=== PATIENT | male | born 1960 | race Caucasian/White ===

== ENCOUNTER → 2016-09-09 | Outpatient (CLI) | payer BC ==
[~2016-09-09] MED LIST: ASPI-435 PO; CLOP1TAB54 PO; INSDGI SQ; INSDGIPEN SC; LEVO125T4 PO; LISI-725 PO; LPR25 PO; LPT/40 PO; NRV/5 PO; NVLGI SC; ZLF/100 PO
[2016-09-09 16:26] LABS: URINE PROTIEN/CREAT RATIO 0.2 (0-0.2); URINE TOTAL PROTEIN 28.8 mg/dl (0-11.9)
[2016-09-09 16:28] LABS: BLOOD UREA NITROGEN 15 mg/dl (7-18); CALCIUM 9.2 mg/dl (8.5-10.1); CARBON DIOXIDE 27 mmol/L (21-32); CHLORIDE 105 mmol/L (98-107); CREATININE 0.85 mg/dl (0.60-1.40); GLUCOSE 64 mg/dl (70-99); POTASSIUM 3.8 mmol/L (3.5-5.1); SODIUM 140 mmol/L (136-145)
[2016-09-09 16:39] LABS: CHOLESTEROL 137 mg/dl (0-200); CHOLESTEROL/HDL RATIO 3.1; HDL CHOLESTEROL 44 mg/dl; LDL CHOLESTEROL CALCULATED 74 mg/dl; TRIGLYCERIDES 93 mg/dl (0-150); VERY LOW DENSITY LIPOPROT CALC 19 mg/dl
[2016-09-10 06:08] LABS: ESTIMATED AVERAGE GLUCOSE 220 mg/dl; HA1C FLAG Normal (Normal)
== END | disposition home or self-care (01) ==
LOC: C.LAB1850 15:21
PROVIDERS: ATTEND Internal Medicine Geriatric Medicine
DX: E78.5 Hyperlipidemia, unspecified (principal); E10.9 Type 1 diabetes mellitus without complications; I25.10 Atherosclerotic heart disease of native coronary artery without angina pectoris; E03.9 Hypothyroidism, unspecified; I10 Essential (primary) hypertension

== ENCOUNTER 2016-10-29 12:27 | Emergency (ER) | payer BC, OTHER ==
[~2016-10-29] VITALS: Ht 172.7 cm; Wt 77.7 kg
[~2016-10-29 12:27] MED LIST changes: -INSDGI SQ; -NRV/5 PO; -ZLF/100 PO
[2016-10-29 12:31] VITALS: Ht 172.7 cm; Wt 77.7 kg
[2016-10-29] MEDS ORDERED: INSDGI SQ (14:04)
[2016-10-29] MEDS ORDERED: NRV/5 PO (14:04)
[2016-10-29] MEDS ORDERED: LPR25 PO (14:04)
[2016-10-29] MEDS ORDERED: ZLF/100 PO (14:04)
[2016-10-29 14:21] VITALS: O2SAT 96
[2016-10-29 14:28] LABS: BASO % 0.1 %; EOS % 0.4 %; HEMATOCRIT 43.8 % (42-52); IG% 0.1 %; LYMPH % 21.4 %; MEAN CELL VOLUME 84.7 fL (80-100); MEAN CORPUSCULAR HEMOGLOBIN 30.9 pg (25-34); MEAN CORPUSCULAR HGB CONC 36.5 g/dl (32-36); MEAN PLATELET VOLUME 8.8 fL (7.4-10.4); MONO % 7.5 %; NEUT % 70.5 %; PLATELET COUNT 301 K/uL (130-400); RED BLOOD COUNT 5.17 M/uL (4.7-6.1); WHITE BLOOD COUNT 7.42 K/uL (4.8-10.8)
[2016-10-29 14:29] LABS: BASO ABS # 0.01 K/uL (0-0.2); COMPLETE YES; LYMPH ABS # 1.59 K/uL (1.2-3.4)
[2016-10-29 14:34] LABS: PROTHROMBIN TIME (PATIENT) 10.9 SECONDS (9.0-12.0)
[2016-10-29 14:36] LABS: ALT/SGPT 37 U/L (12-78); BLOOD UREA NITROGEN 18 mg/dl (7-18); BUN/CREATININE RATIO 14.9 (10-20); CALCIUM 9.7 mg/dl (8.5-10.1); CARBON DIOXIDE 18 mmol/L (21-32); CHLORIDE 100 mmol/L (98-107); GLUCOSE 219 mg/dl (70-99); POTASSIUM 3.7 mmol/L (3.5-5.1); SODIUM 134 mmol/L (136-145)
[2016-10-29] MEDS ORDERED: SODIUM CHLORIDE 0.9% 1000ML 1,000 ML IV STA ×2 (14:46)
[2016-10-29 14:47] LABS: ALKALINE PHOSPHATASE 75 U/L (45-117); AST/SGOT 31 U/L (15-37)
[2016-10-29 15:10] LABS: BETA-HYDROXYBUTYRATE 10.01 mg/dL (0.2-2.81)
[2016-10-29 15:17] LABS: URINE APPEARANCE CLEAR (CLEAR); URINE COLOR DK YELLOW; URINE NITRITE POS (NEG); URINE PH 5.5 (4.5-7.5); URINE SPECIFIC GRAVITY 1.042 (1.000-1.030); UROBILINOGEN NEG (NEG)
[2016-10-29 15:20] LABS: MANUAL MICROSCOPIC REQUIRED? NO; REVIEW REQ? NO
[2016-10-29 15:22] LABS: URINE BILIRUBIN NEG (NEG)
[2016-10-29 17:17] LABS: BUN/CREATININE RATIO 16.7 (10-20); CALCIUM 8.3 mg/dl (8.5-10.1); CREATININE 0.96 mg/dl (0.60-1.40); POTASSIUM 3.3 mmol/L (3.5-5.1)
[2016-10-29 19:00] VITALS: BP 129/86; PULSE 78; TEMP 36.4; O2SAT 100
--- NOTE | 2016-10-29 21:49 | EMERGENCY ROOM VISIT NOTE ---
History Report prepared by Xiomara: Karin Westfall Under the Supervision of: Dr. Dyllan Dickerson M.D. First contact with patient: 14:17 Chief Complaint: HYPERGLYCEMIA Stated Complaint: WEAK AND LOW SUGAR YESTERDAY, SUGAR HIGH TODAY Nursing Triage Summary: pt reports he is insulin dependent dibetic and yesterday when he went home started shaking and knew bsg was low to weak to move to answer phone or get food in mouth. pt reports checking sugars 4-5 times a day. ate 2 coookies yesterday and then fell asleep. pt is hyper in triage and reports he is scared. feels weak and shakey now History of Present Illness The patient is a 55 year old male who presents to the Emergency Room with complaints of intermittent hypoglycemia that has been ongoing for the past several weeks. The patient states that yesterday around 1400 he laid down to take a nap. He states that he noticed his blood glucose level was dropping so he tried eating cookies and icing to raise his levels. The patient states that he was so weak during these episodes that it is hard for him to even move because he feels so weak. He states that after the episode he fell asleep for the rest of the day until this morning. The patient states that when he woke up with chills and blood glucose around 190 mg/dL. The patient's states that these hypoglycemic episodes have been happening three times a week. She states that the patient does not eat normally throughout the day. His usual diet is potato chips. The patient states that he takes 45 units of Lantus each morning. The patient additionally notes tachycardia and difficulty breathing. Pt denies LOC, headache, fevers, diaphoresis, visual changes, neck pain, chest pain, nausea, vomiting, abdominal pain, back pain, melena, hematochezia, urinary symptoms, numbness, lymphadenopathy, rash, or other complaints. Source of History: patient, spouse/significant other () Onset: past several weeks Position: other (global) Quality: other (hypoglycemia) Timing: intermittent Associated Symptoms: + chills, + weakness Review of Systems See HPI for pertinent positives and negatives. A total of ten systems were reviewed and were otherwise negative. Past Medical & Surgical Medical Problems: (1) Diabetes mellitus (2) High cholesterol (3) HTN (hypertension) Family History Heart disease Social History Smoking Status: Never Smoker Alcohol Use: heavy Marital Status: Housing Status: lives with significant other Occupation Status: employed Current/Historical Medications Scheduled Amlodipine Besylate (Amlodipine Besylate), 5 MG PO DAILY Aspirin (Aspirin 81), 81 MG PO DAILY Atorvastatin (Lipitor), 40 MG PO DAILY Clopidogrel Bisulfate (Plavix), 75 MG PO DAILY Insulin Aspart (Novolog), 30-50 UNITS SC DAILY Insulin Glargine (Lantus), 45 UNITS SQ QAM Levothyroxine Sodium (Levothyroxine Sodium), 1 TAB PO DAILY Lisinopril (Zestril), 40 MG PO DAILY Metoprolol Tartrate (Lopressor), 1.5 TAB PO BID Sertraline HCl (Sertraline HCl), 100 MG PO DAILY Allergies Coded Allergies: No Known Allergies (Unverified , 10/29/16) Physical Exam Vital Signs Date Time Temp Pulse Resp B/P Pulse Ox O2 Delivery O2 Flow Rate FiO2 10/29/16 19:00 36.4 78 18 129/86 100 10/29/16 18:29 66 10/29/16 16:51 77 18 141/87 Room Air 10/29/16 14:57 71 18 110/76 97 10/29/16 14:28 72 10/29/16 14:21 96 Room Air 10/29/16 12:31 36.4 91 22 157/105 98 Room Air Physical Exam GENERAL: Awake, alert, well-appearing, in no distress HENT: Normocephalic, atraumatic. Oropharynx unremarkable. EYES: Normal conjunctiva. Sclera non-icteric. NECK: Supple. No nuchal rigidity. FROM. No JVD. RESPIRATORY: Clear to auscultation. CARDIAC: Regular rate, normal rhythm. Extremities warm and well perfused. Pulses equal. ABDOMEN: Soft, non-distended. No tenderness to palpation. No rebound or guarding. No masses. RECTAL: Deferred. MUSCULOSKELETAL: Chest examination reveals no tenderness. The back is symmetrical on inspection without obvious abnormality. There is no CVA tenderness to palpation. No joint edema. LOWER EXTREMITIES: Calves are equal size bilaterally and non-tender. No edema. No discoloration. NEURO: Normal sensorium. No sensory or motor deficits noted. SKIN: No rash or jaundice noted. Medical Decision & Procedures Laboratory Results 10/29/16 13:11 Red Blood Count 5.17, Mean Corpuscular Volume 84.7, Mean Corpuscular Hemoglobin 30.9, Mean Corpuscular Hemoglobin Concent 36.5, Mean Platelet Volume 8.8, Neutrophils (%) (Auto) 70.5, Lymphocytes (%) (Auto) 21.4, Monocytes (%) (Auto) 7.5, Eosinophils (%) (Auto) 0.4, Basophils (%) (Auto) 0.1, Neutrophils # (Auto) 5.22, Lymphocytes # (Auto) 1.59, Monocytes # (Auto) 0.56, Eosinophils # (Auto) 0.03, Basophils # (Auto) 0.01 10/29/16 16:45 Test 10/29/16 13:11 10/29/16 14:57 10/29/16 16:45 10/29/16 18:43 White Blood Count 7.42 K/uL (4.8-10.8) Red Blood Count 5.17 M/uL (4.7-6.1) Hemoglobin 16.0 g/dL (14.0-18.0) Hematocrit 43.8 % (42-52) Mean Corpuscular Volume 84.7 fL (80-100) Mean Corpuscular Hemoglobin 30.9 pg (25-34) Mean Corpuscular Hemoglobin Concent 36.5 g/dl (32-36) Platelet Count 301 K/uL (130-400) Mean Platelet Volume 8.8 fL (7.4-10.4) Neutrophils (%) (Auto) 70.5 % Lymphocytes (%) (Auto) 21.4 % Monocytes (%) (Auto) 7.5 % Eosinophils (%) (Auto) 0.4 % Basophils (%) (Auto) 0.1 % Neutrophils # (Auto) 5.22 K/uL (1.4-6.5) Lymphocytes # (Auto) 1.59 K/uL (1.2-3.4) Monocytes # (Auto) 0.56 K/uL (0.11-0.59) Eosinophils # (Auto) 0.03 K/uL (0-0.5) Basophils # (Auto) 0.01 K/uL (0-0.2) RDW Standard Deviation 39.6 fL (36.4-46.3) RDW Coefficient of Variation 12.8 % (11.5-14.5) Immature Granulocyte % (Auto) 0.1 % Immature Granulocyte # (Auto) 0.01 K/uL (0.00-0.02) Prothrombin Time 10.9 SECONDS (9.0-12.0) Prothromb Time International Ratio 1.0 (0.9-1.1) Activated Partial Thromboplast Time 27.2 SECONDS (21.0-31.0) Partial Thromboplastin Ratio 1.0 Magnesium Level 2.0 mg/dl (1.8-2.4) Total Bilirubin 0.6 mg/dl (0.2-1) Direct Bilirubin 0.1 mg/dl (0-0.2) Aspartate Amino Transf (AST/SGOT) 31 U/L (15-37) Alanine Aminotransferase (ALT/SGPT) 37 U/L (12-78) Alkaline Phosphatase 75 U/L (45-117) Troponin I < 0.015 ng/ml (0-0.045) Total Protein 8.5 gm/dl (6.4-8.2) Albumin 4.5 gm/dl (3.4-5.0) Lipase 139 U/L (73-393) Beta-Hydroxybutyric Acid 10.01 mg/dL (0.2-2.81) Thyroid Stimulating Hormone (TSH) 13.100 uIu/ml (0.300-4.500) Urine Color DK YELLOW Urine Appearance CLEAR (CLEAR) Urine pH 5.5 (4.5-7.5) Urine Specific [place] 1.042 (1.000-1.030) Urine Protein TRACE (NEG) Urine Glucose (UA) 3+ (NEG) Urine Ketones 2+ (NEG) Urine Occult Blood NEG (NEG) Urine Nitrite POS (NEG) Urine Bilirubin NEG (NEG) Urine Urobilinogen NEG (NEG) Urine Leukocyte Esterase TRACE (NEG) Urine WBC (Auto) 1-5 /hpf (0-5) Urine RBC (Auto) 0-4 /hpf (0-4) Urine Hyaline Casts (Auto) 10-30 /lpf (0-5) Urine Epithelial Cells (Auto) 10-20 /lpf (0-5) Urine Bacteria (Auto) NEG (NEG) Anion Gap 9.0 mmol/L (3-11) Est Creatinine Clear Calc Drug Dose 83.1 ml/min Estimated GFR () 102.0 Estimated GFR (Non- 88.0 BUN/Creatinine Ratio 16.7 (10-20) Calcium Level 8.3 mg/dl (8.5-10.1) Bedside Glucose 130 mg/dl (70-99) Laboratory results reviewed by me Medications Administered Medications (Trade) Dose Ordered Sig/Debbie Route Start Time Stop Time Status Last Admin Dose Admin Sodium Chloride (Nss 1000ml) 1,000 ml @ 200 mls/hr Q5H STAT IV 10/29/16 14:46 10/29/16 19:45 DC 10/29/16 14:46 200 MLS/HR ECG Indication: weakness, other (hypoglycemia) Rate (beats per minute): 59 Rhythm: sinus bradycardia Findings: nonspecific-ST abn, Q waves (Lateral), no ectopy Comparison ECG Date: 05/30/16 Change: no significant change ED Course 1439: The patient was evaluated in room C4. A complete history and physical exam was performed. 1446: Ordered Sodium Chloride 1000 ml @ 999 mls/hr IV, Sodium Chloride 1000 ml @ 200 mls/hr IV. 1555: I reevaluated the patient and he is resting comfortably. 1615: I discussed the patients case with Dr. Wilkinson, Endocrinology. He states that the patient has had a lot of problems with depression, stressors at work, and alcohol issues. He states that he will happily see the patient in the office this week for follow up. 1625: I reevaluated the patient and he is resting comfortably. He states that he feels less stress and has cut back on his alcohol consumption. He is going to eat some food in the department and see his repeat chemistries. 1730: I reevaluated the patient and he feels well while eating his dinner. 1851: I reevaluated the patient and he is resting comfortably. I discussed the treatment plan with him and he verbalized complete understanding and agreement. He is ready to go home. Medical Decision Triage Nursing notes reviewed. The patient's presentation and history were concerning for blood sugar abnormalities. Etiologies such as metabolic, infection, hypo/hyperglycemia, DKA, ketosis, electrolyte abnormalities, cardiac sources, intracerebral event, toxicologic, neurologic, as well as others were entertained. The patient was evaluated. Clinically he looked well. The patient had readily admitted that his diet is suboptimal. He rarely eats. His insulin dosing is not consistent. The patient did eventually note that he tries to minimize his amount of insulin taken because of cost. The patient also noted that he had some alcohol recently but has cut back dramatically. Blood work was obtained. The patient was hydrated. His CBC was unremarkable. His chemistry panel revealed a mild elevation of his anion gap and glucose into the low 200 range. He has slight elevation of liver function and his beta hydroxybutyric acid level. The patient's blood sugar was rechecked as there was some concerns about developing DKA and the blood sugar was near normal. Likely the patient looked well. His Troponin was rechecked and his anion gap and hyperglycemia was resolved. No acidosis present. This initial abnormality may be due to ketosis as the patient has really been taking significant calories in the last few days. I did consult with his dx board operator. The patient has long- standing issues with alcohol use and depression. He has issues with diabetic control and diet. The patient confirm this. He is not suicidal. He notes his memory issues have actually improved slightly. I had a long discussion with him about the patient. He will see the patient in the office this week for endocrinology consultation and further diabetic education. The patient and felt comfortable with this plan. I encouraged the patient to follow all instructions and diabetic recommendations given to him by endocrinology. I did provide the patient with handouts on diet, insulin, and diabetic care. The patient was given dinner. He did well with this. His blood glucose was minimally elevated over normal. The patient did not want any insulin for this and will monitor her sugar and treat himself as previously outlined. If he worsens in any way she will come back to the emergency department. By the evaluation outlined above other emergent etiologies such as those listed in the differential, as well as others, were deemed relatively unlikely. The patient went for informed about the findings as listed above. All questions were answered and they were pleased with the treatment. Return instructions were outlined and the patient was discharged in stable condition. The patient was referred to endocrinology for follow-up this week for a recheck of the current condition. The chart was completed utilizing [employer] voice recognition software. Grammatical errors, random word insertions, pronoun errors, and incomplete sentences are an occasional consequence of this system due to software limitations, ambient noise, and hardware issues. Any formal questions or concerns about the content, text, or information contained within the body of this dictation should be directly addressed to the physician for clarification. Consults Time Called: 1605 Consulting Physician: Dr. Wilkinson, Endocrinology Returned Call: 1615 I discussed the patients case with Dr. Wilkinson, Endocrinology. He states that the patient has had a lot of problems with depression, stressors at work, and alcohol issues. He states that he will happily see the patient in the office this week for follow up. Impression Primary Impression: Hyperglycemia Additional Impression: Diabetes Scribe Attestation The scribe's documentation has been prepared under my direction and personally reviewed by me in its entirety. I confirm that the note above accurately reflects all work, treatment, procedures, and medical decision making performed by me. Departure Information Dispostion Home / Self-Care Referrals Dipesh Craig M.D. (PCP) Forms HOME CARE DOCUMENTATION FORM, IMPORTANT VISIT INFORMATION, WORK / SCHOOL INSTRUCTIONS Patient Instructions Diabetes Carbs, Diabetes Eating Out, Diabetes Healthy Meals, Diabetes Living Life, Diabetes Shopping Preparing Meals, ED Diabetes Hypoglycemia Insulin React , ED Diet Diabetic, [facility] Additional Instructions Continue current medications. Follow-up with your dx board operator office tomorrow. But the company secretary know that he was aware about your Emergency Room visit and will see this week in consultation. Rest and drink plenty of fluids. Eat a healthy diet as outlined. See the reference material. Return to the ER for worsening blood sugar problems, chest pain, difficulty breathing, fevers, vomiting, worsening of your condition, or as needed. Problem Qualifiers
== END 2016-10-29 19:01 | disposition home or self-care (01) ==
LOC: C.EDB 12:28 → C.EDC 19:01
DX: E11.65 Type 2 diabetes mellitus with hyperglycemia (principal); I10 Essential (primary) hypertension; Z82.49 Family history of ischemic heart disease and other diseases of the circulatory system

== ENCOUNTER → 2017-07-08 | Outpatient (CLI) | payer BC ==
[~2017-07-08] MED LIST changes: +INSDGI SQ; -INSDGIPEN SC; -LEVO125T4 PO; +LEVO125T5 PO; +NRV/5 PO; +ZLF/100 PO
== END | disposition home or self-care (01) ==
LOC: C.LABSPEC 17:20
PROVIDERS: ATTEND Nurse Practitioner Adult Health
DX: S41.101A Unspecified open wound of right upper arm, initial encounter (principal); X58.XXXA Exposure to other specified factors, initial encounter

== ENCOUNTER → 2017-07-18 | Outpatient (CLI) | payer BC ==
[2017-07-18 14:02] LABS: BLOOD UREA NITROGEN 29 mg/dl (7-18); BUN/CREATININE RATIO 22.3 (10-20); CALCIUM 9.7 mg/dl (8.5-10.1); CARBON DIOXIDE 26 mmol/L (21-32); CHLORIDE 96 mmol/L (98-107); CREATININE 1.29 mg/dl (0.60-1.40); GLUCOSE 312 mg/dl (70-99); POTASSIUM 5.4 mmol/L (3.5-5.1); SODIUM 130 mmol/L (136-145)
[2017-07-18 14:12] LABS: BETA-HYDROXYBUTYRATE 1.84 mg/dL (0.2-2.81)
== END | disposition home or self-care (01) ==
LOC: C.LABBC 09:22
PROVIDERS: ATTEND Nurse Practitioner Adult Health
DX: E10.9 Type 1 diabetes mellitus without complications (principal)

== ENCOUNTER → 2017-07-21 | Outpatient (CLI) | payer BC ==
[2017-07-21 16:46] LABS: BLOOD UREA NITROGEN 27 mg/dl (7-18); BUN/CREATININE RATIO 20.1 (10-20); CALCIUM 8.9 mg/dl (8.5-10.1); CARBON DIOXIDE 22 mmol/L (21-32); CHLORIDE 101 mmol/L (98-107); CREATININE 1.36 mg/dl (0.60-1.40); GLUCOSE 199 mg/dl (70-99); POTASSIUM 4.6 mmol/L (3.5-5.1); SODIUM 133 mmol/L (136-145)
[2017-07-22 06:07] LABS: ESTIMATED AVERAGE GLUCOSE 258 mg/dl; HA1C FLAG Normal (Normal)
== END | disposition home or self-care (01) ==
LOC: C.LAB1850 14:18
PROVIDERS: ATTEND Internal Medicine Geriatric Medicine
DX: Z00.00 Encounter for general adult medical examination without abnormal findings (principal); I10 Essential (primary) hypertension; E03.9 Hypothyroidism, unspecified; E10.9 Type 1 diabetes mellitus without complications; Z11.59 Encounter for screening for other viral diseases; L08.9 Local infection of the skin and subcutaneous tissue, unspecified

== ENCOUNTER → 2017-07-23 | Outpatient (CLI) | payer BC ==
[2017-07-23 17:25] LABS: BLOOD UREA NITROGEN 20 mg/dl (7-18); CALCIUM 8.7 mg/dl (8.5-10.1); CARBON DIOXIDE 25 mmol/L (21-32); CHLORIDE 103 mmol/L (98-107); GLUCOSE 290 mg/dl (70-99); POTASSIUM 4.6 mmol/L (3.5-5.1); SODIUM 132 mmol/L (136-145)
== END | disposition home or self-care (01) ==
LOC: C.LABBC 14:19
PROVIDERS: ATTEND Nurse Practitioner Adult Health
DX: L08.9 Local infection of the skin and subcutaneous tissue, unspecified (principal)

== ENCOUNTER → 2017-10-16 | Outpatient (CLI) | payer OTHER ==
[2017-10-16 14:11] LABS: HEMOGLOBIN A1C 10.8 % (4.5-5.6)
[2017-10-16 14:30] LABS: ALBUMIN 4.3 gm/dl (3.4-5.0); ALKALINE PHOSPHATASE 88 U/L (45-117); ALT/SGPT 29 U/L (12-78); AST/SGOT 17 U/L (15-37); BLOOD UREA NITROGEN 17 mg/dl (7-18); CALCIUM 9.9 mg/dl (8.5-10.1); CARBON DIOXIDE 27 mmol/L (21-32); CHOLESTEROL 214 mg/dl (0-200); CREATININE 1.08 mg/dl (0.60-1.40); GLUCOSE 381 mg/dl (70-99); LDL CHOLESTEROL CALCULATED 143 mg/dl; POTASSIUM 4.3 mmol/L (3.5-5.1); SODIUM 133 mmol/L (136-145); TOTAL PROTEIN 8.4 gm/dl (6.4-8.2)
== END | disposition home or self-care (01) ==
LOC: C.LABBC 09:45
PROVIDERS: ATTEND Internal Medicine Geriatric Medicine
DX: E78.5 Hyperlipidemia, unspecified (principal); I10 Essential (primary) hypertension; I25.10 Atherosclerotic heart disease of native coronary artery without angina pectoris; E03.9 Hypothyroidism, unspecified; E10.9 Type 1 diabetes mellitus without complications; F41.8 Other specified anxiety disorders

== ENCOUNTER 2023-03-24 13:45 | Inpatient (IN) ==
--- NOTE | 2023-03-24 15:02 | Emergency Department Note ---
History of Present Illness General Chief complaint: Cardiac Assessment Time Seen by Provider: 03/24/23 14:42 History of Present Illness This is a 62-year-old male with a history of diabetes, hypertension, dyslipid emia, history of cardiac stent placement in 2014 that presents to the emergency department via EMS from PCP office for evaluation of "chest pain". The patient notes that he has been under a tremendous amount of stress that acutely worsened earlier today. He notes that he found out that he may lose his house this morning. He notes that this increased stress then translated into some chest burning in the upper chest. He also happened to have a PCP follow-up today scheduled before and was there today at 1 PM. He notes that in discussion he became worked up and began having what he describes as a panic attack with associated chest burning. Nitroglycerin was taken and also an aspirin. He n otes that at the present time chest burning/pain has resolved. Per review of the patient's previous medical record it does appear that the patient on 12/09/2014 underwent cardiac cath followed by stent placement x1. He does not follow with cardiology presently. Patient does note that the symptoms he is experiencing today feel similar to what led to a cardiac cath previously. Home Medications Medication Instructions Recorded Confirmed Type aspirin 81 mg tablet,delayed 81 mg PO QAM 08/06/18 03/24/23 History release (Justice Low Dose Aspirin) blood-glucose meter (Accu-Chek #1 ea 04/12/19 01/02/23 History Guide Glucose Meter) blood-glucose meter,continuous #1 ea 01/16/22 01/02/23 Rx (Dexcom G6 [facility] [employer]) thiamine HCl (vitamin B1) 100 mg 100 mg PO DAILY #90 tabs 03/08/22 03/24/23 Rx tablet mirtazapine 7.5 mg tablet 7.5 mg PO DAILY PRN Sleep 04/22/22 03/24/23 History blood sugar diagnostic (Accu-Chek #50 ea 05/07/22 01/02/23 Rx Guide test strips) blood-glucose sensor (Dexcom G6 #9 ea 10/30/22 03/24/23 Rx Sensor device) blood-glucose transmitter (Dexcom #1 ea 10/30/22 03/24/23 Rx G6 Transmitter device) pen needle, diabetic 32 gauge x #150 ea 10/30/22 03/24/23 Rx 532" (BD Vashti 2nd Gen Pen Needle) insulin aspart U-100 100 unit/mL 8 unit (0.08 mL) subcut TID #1 box 01/02/23 03/24/23 Rx (3 mL) subcutaneous pen (Novolog FlexPen U-100 Insulin aspart) lancets (Accu-Chek Fastclix Lancet #50 ea 01/02/23 01/02/23 History Drum) insulin degludec 100 unit/mL (3 32 unit (0.32 mL) subcut QPM #15 mL 01/06/23 03/24/23 Rx mL) subcutaneous pen (Tresiba FlexTouch U-100 insulin) lisinopril 40 mg tablet 40 mg PO QAM #90 tabs 01/16/23 03/24/23 Rx atorvastatin 40 mg tablet 40 mg PO HS #90 tabs 01/23/23 03/24/23 Rx nitroglycerin 0.4 mg sublingual 0.4 mg sublingual UD PRN Angina 01/23/23 03/24/23 Rx tablet #25 tabs amlodipine 10 mg tablet 10 mg PO QAM #30 tabs 02/06/23 03/24/23 Rx levothyroxine 112 mcg tablet 112 mcg PO QAM #90 tabs 02/14/23 03/24/23 Rx Allergies Allergy/AdvReac Type Severity Reaction Status Date / Time buspirone [From BuSpar] Allergy Intermediate "put me to Verified 03/24/23 16:16 sleep driving", made very drowsy Past Med/Surg History Medical History Alcohol abuse 3 beers per day Anxiety Depression Diabetes mellitus type 1 History of anesthesia reaction "during disce[place] [facility] [place] an [place] attack--had to have a breathing tx" History of COVID-19 Aug 2020 > tested at [facility], had no symptoms > was due to exposure Hyperlipidemia Hypertension Hypothyroidism MDD (major depressive disorder) Myocardial Infarction 2014--follows with Dr. Sullivan Osteoarthritis Surgical History History of appendectomy History of colonoscopy History of discectomy L4-L5 History of heart artery stent 2014 @ [facility] History of tonsillectomy History of wisdom tooth extraction Family History Father Family history of diabetes mellitus Family hx colonic polyps Mother Family history of diabetes mellitus Cardiac disorder Myocardial infarction Sister Family history of diabetes mellitus Grandfather (Maternal) Family history of diabetes mellitus Grandfather (Paternal) Family history of diabetes mellitus Grandmother (Paternal) Family history of diabetes mellitus Grandmother (Maternal) Family history of diabetes mellitus Brother Family history of diabetes mellitus Other No family history of adverse response to anesthesia Denies family history of Ovarian cancer Prostate cancer Breast cancer Colorectal cancer Social History Smoking Status: Never smoker Tobacco Type: Cigarettes Age Quit Using Tobacco: 17; Cigarettes Per Day: social; Second Hand Exposure: Yes (Patient states "not much"); Do You Dip or Chew Tobacco: Yes; Tobacco Cessation Education Requested by Patient: No Hx Alcohol Use: Yes Alcohol type: beer Alcohol Intake Frequency Comment: 1-2 couple days a week Hx Substance Use: Yes Prescribed Medications: Marijuana Last Used Substance: Hours (ago) Last Used Substance Other:: 09/02/2018 Substance Use Type Other:: daily use, no card, advised 3 day hold Preferred Language: Yi Communication Ability: Effective Visual Impairment: No Limitations Hearing Ability: Normal Configuration Specialist Required: No Beliefs That Will Affect Care: None marital status: Current Living Situation: Spouse Current Living Situation Comment: home current occupational status: retired How many Children do You have: 3 Other Information That Helps Us Care for You: No Feels Safe at Home: Yes Safety Concerns: Feels Safe At This Time Childhood Exposure to Second-Hand Smoke: Yes caffeine: Yes (coffee ) Dental Care, Regularly: No Physical Activity Frequency: Does not Exercise Seatbelt Use: always Sunscreen Use: No Assistive Devices: None Review of Systems A total of 10 systems reviewed and were otherwise negative Physical Exam Vital Signs Vital Signs - 24 hr 03/24/23 14:02 03/24/23 14:06 03/24/23 14:25 Temperature 36.7 C Temperature Source Oral Pulse Rate 99 H 101 H Pulse Rate [Apical] Respiratory Rate 20 Respiratory Effort / Characteristics Non-Labored Spontaneous Respiratory Pattern Regular Blood Pressure 163/83 H Blood Pressure [Left Arm] Blood Pressure Mean 109 Blood Pressure Mean [Left Arm] Blood Pressure Position Semi-fowlers Blood Pressure Position [Left Arm] Pulse Oximetry 97 96 Oxygen Delivery Method Room Air Room Air Sepsis Recent Fever Within 48 Hours No Sepsis New/Unexplained Change in Mental Status N/A Sepsis Action Taken by Nursing No Action Required 03/24/23 14:00 03/24/23 16:18 Temperature Temperature Source Pulse Rate Pulse Rate [Apical] 98 H 83 Respiratory Rate 22 21 Respiratory Effort / Characteristics Respiratory Pattern Blood Pressure Blood Pressure [Left Arm] 168/82 H 154/79 H Blood Pressure Mean Blood Pressure Mean [Left Arm] 110 104 Blood Pressure Position Blood Pressure Position [Left Arm] Semi-fowlers Pulse Oximetry 96 97 Oxygen Delivery Method Room Air Room Air Sepsis Recent Fever Within 48 Hours Sepsis New/Unexplained Change in Mental Status Sepsis Action Taken by Nursing VITAL SIGNS - Vital signs and nursing notes were reviewed. Mildly hypertensive, borderline tachycardic, otherwise stable. GENERAL -62-year-old male appearing his stated age who is in no acute distress. Communicates well with provider and answers questions appropriately. SKIN - Without rashes. No meningeal or petechial rash. HEAD - NC/AT. EYES - PERRL with EOMI bilaterally. Sclera anicteric. EARS - No deformities of external structures noted on gross examination bilaterally. NOSE - Midline and without cyanosis. No epistaxis or purulent drainage noted. MOUTH/OROPHARYNX - Without perioral cyanosis. NECK - Neck with FROM. No nuchal rigidity. LUNGS - Chest wall symmetric without accessory muscle use, intercostals retractions, or central cyanosis. Normal vesicular breath sounds CTA B/L. No wheezes, rales, or rhonchi appreciated. CARDIAC - RRR with S1/S2. No murmur, rubs, or gallops appreciated. ABDOMEN - Abdominal contour normal without pulsations or visible masses. BS normoactive all four quadrants. No tenderness, palpable masses, hepatosplenomegaly, or ascites noted. EXTREMITIES - No clubbing or peripheral cyanosis. +5/5 strength noted in UE/LE bilaterally. NEUROLOGIC - Cranial nerves II through XII grossly intact. PSYCH - A&Ox3 and cooperates fully with examiner. Pt is very pleasant and interacts well with examiner. Course Administered Medications Atorvastatin Calcium (Atorvastatin 40 Mg Tab) 40 mg PO HS CATE Stop: 04/23/23 20:59 Last Admin: 03/24/23 21:06 Dose: 40 mg Documented By: ARTEM Heparin Sodium/Dextrose (Heparin Sodium/Dextrose) 25,000 units in 500 mls @ 0 mls/hr IV .Q0M [facility]; Protocol Stop: 04/23/23 17:14 Last Titration: 03/24/23 21:42 Dose: 850 units/hr, 17 mls/hr Documented By: ARTEM Co-signed By: YARI Titration: 03/24/23 19:35 Dose: 0 units/hr, 0 mls/hr Documented By: ARTEM Co-signed By: YARI Admin: 03/24/23 17:09 Dose: 850 units/hr, 17 mls/hr Documented By: Co-signed By: TR Discontinued Medications Heparin Sodium (Porcine) (Heparin Sod (Porcine) 1000 Unit/Ml) 4,000 units IV NOW ONE Stop: 03/24/23 17:09 Last Admin: 03/24/23 17:09 Dose: 4,000 units Documented By: Co-signed By: TR Medical Decision Making Laboratory Data 03/24/23 13:54 03/24/23 13:54 Lab Results 03/24/23 03/24/23 03/24/23 Range/Units 13:54 13:54 13:54 WBC 5.52 (4.8-10.8) K/ul RBC 4.82 (4.70-6.10) M/uL Hgb 14.5 (14.0-18.0) g/dl Hct 41.0 L (42.0-52.0) % MCV 85.1 (80.0-100.0) fL MCH 30.1 (25.0-34.0) pg MCHC 35.4 (32.0-36.0) g/dL RDW Std Deviation 37.5 (36.4-46.3) fL RDW Coeff of Vance 12.1 (11.5-14.5) % Plt Count 277 (130-400) K/uL MPV 8.5 L (9.4-12.4) fL Immature Gran % (Auto) 0.2 % Neut % (Auto) 53.7 % Lymph % (Auto) 28.4 % Gaines % (Auto) 9.8 % Eos % (Auto) 7.2 % Baso % (Auto) 0.7 % Neut # (Auto) 2.96 (1.40-6.50) K/uL Lymph # (Auto) 1.57 (1.2-3.4) K/uL Gaines # (Auto) 0.54 (0.11-0.59) K/uL Eos # (Auto) 0.40 (0-0.50) K/uL Baso # (Auto) 0.04 (0-0.2) K/uL Immature Gran # (Auto) 0.01 (0.01-0.20) K/uL PT 10.9 (9.0-12.0) Seconds INR 1.0 (0.9-1.1) APTT 29.6 (21.0-31.0) Seconds PTT Ratio 1.0 Sodium 132 L (136-145) mmol/L Potassium 4.3 (3.5-5.1) mmol/L Chloride 99 (98-107) mmol/L Carbon Dioxide 24 (21-32) mmol/L Anion Gap 9 (3-11) BUN 16 (6-23) mg/dl Creatinine 0.73 (0.6-1.4) mg/dl Est Cr Clr Drug Dosing 100.2 ml/min Est GFR ( Amer) 114.4 ml/min Est GFR (Non-Af Amer) 98.7 ml/min BUN/Creatinine Ratio 21.9 H (10-20) Glucose 216 H (70-99(Fasting)) mg/dl Calcium 9.7 (8.6-10.3) mg/dl Magnesium 1.9 (1.7-2.4) mg/dl Total Bilirubin 0.5 (0.2-1.0) mg/dl AST 20 (13-39) U/L ALT 17 (7-52) U/L Alkaline Phosphatase 51 (34-104) U/L Troponin I High Sens 9.3 (0-20) pg/ml Total Protein 7.6 (6.0-8.3) gm/dl Albumin 4.5 (3.4-5.0) gm/dl Globulin 3.1 (2.5-4.0) gm/dl Albumin/Globulin Ratio 1.5 (0.9-2) Lipase 19 (11-82) U/L TSH (0.300-4.500) uIu/ml SARS-CoV-2, RNA, NAAT (NEGATIVE) 03/24/23 03/24/23 Range/Units 13:54 15:23 WBC (4.8-10.8) K/ul RBC (4.70-6.10) M/uL Hgb (14.0-18.0) g/dl Hct (42.0-52.0) % MCV (80.0-100.0) fL MCH (25.0-34.0) pg MCHC (32.0-36.0) g/dL RDW Std Deviation (36.4-46.3) fL RDW Coeff of Vance (11.5-14.5) % Plt Count (130-400) K/uL MPV (9.4-12.4) fL Immature Gran % (Auto) % Neut % (Auto) % Lymph % (Auto) % Gaines % (Auto) % Eos % (Auto) % Baso % (Auto) % Neut # (Auto) (1.40-6.50) K/uL Lymph # (Auto) (1.2-3.4) K/uL Gaines # (Auto) (0.11-0.59) K/uL Eos # (Auto) (0-0.50) K/uL Baso # (Auto) (0-0.2) K/uL Immature Gran # (Auto) (0.01-0.20) K/uL PT (9.0-12.0) Seconds INR (0.9-1.1) APTT (21.0-31.0) Seconds PTT Ratio Sodium (136-145) mmol/L Potassium (3.5-5.1) mmol/L Chloride (98-107) mmol/L Carbon Dioxide (21-32) mmol/L Anion Gap (3-11) BUN (6-23) mg/dl Creatinine (0.6-1.4) mg/dl Est Cr Clr Drug Dosing ml/min Est GFR ( Amer) ml/min Est GFR (Non-Af Amer) ml/min BUN/Creatinine Ratio (10-20) Glucose (70-99(Fasting)) mg/dl Calcium (8.6-10.3) mg/dl Magnesium (1.7-2.4) mg/dl Total Bilirubin (0.2-1.0) mg/dl AST (13-39) U/L ALT (7-52) U/L Alkaline Phosphatase (34-104) U/L Troponin I High Sens (0-20) pg/ml Total Protein (6.0-8.3) gm/dl Albumin (3.4-5.0) gm/dl Globulin (2.5-4.0) gm/dl Albumin/Globulin Ratio (0.9-2) Lipase (11-82) U/L TSH 0.897 (0.300-4.500) uIu/ml SARS-CoV-2, RNA, NAAT NEGATIVE (NEGATIVE) Imaging Data Radiologist's Impression: Chest X-Ray 03/24/23 14:57 XR chest 1V portable CLINICAL HISTORY: Atypical chest pain. COMPARISON STUDY: Chest radiograph May 29, 2016. FINDINGS: There is no pneumothorax or pleural effusion. No consolidation is identified to suggest pneumonia. Cardiac size is normal. Mediastinal contours are normal. A 4 mm nodular density projects over the right lower lung. IMPRESSION: 1. No acute cardiopulmonary findings. 2. 4 mm nodular density which projects of the right lower lung. This may reflect a nipple shadow. However, a pulmonary nodule could appear similar. Follow-up PA chest radiograph with nipple markers is recommended. ACT 112: Negative or not required by law. Electronically signed by: Lukas Morrison M.D. 03/24/2023 3:24 PM MDM Narrative Patient was seen and evaluated as above in room C01. Review was performed of triage nursing notes and vital signs. Presenting blood pressure has started to improve compared to that obtained at the PCP office earlier today. I did review pertinent previous visits and patient history. After obtaining a thorough history and physical examination the above work up was performed. Patient presents to us today for assessment of chest burning that occurred earlier today with history of cardiac cath in 2014. Patient clinically well-appearing and nontoxic but does appear to be anxious when discussing recent stressors such as potentially losing the house. Options of care were discussed with the patient. IV access was established. Labs were drawn. He is asymptomatic at this time noting no chest pain or burning. He received aspirin and nitroglycerin prehospital. EKG was performed on arrival and reveals sinus tachycardia at a rate of 105 bpm. QTc 433. QRS 92. There is no ST elevation noted. Prominent T waves are noted compared to previous. Labs reveal no leukocytosis or concerning anemia. No emergent metabolic disturbance. Initial troponin negative. Lipase reveals normal fin ding. TSH reveals euthyroid state. COVID testing negative. Chest x-ray negative for emergent process. I did compare today's EKG to previous in the EMR which at time of review was October 29, 2016. EKG at this time without evidence of ST elevation. I do believe the patient's presentation is concerning for that of cardiac etiology. I then discussed presentation with the on-call substitute crossing guard, Dr. Maxwell. At this time plan is for heparin with cardiac cath planned for tomorrow as the patient is symptom-free at this time. Heparin was ordered after discussing benefit versus risk with the patient. No contraindications have been identified. Patient denies any trauma or injury recently. No blood in the stool. No dark tarry stools. No history of GI bleeding. No history of stomach ulcers. Patient is agreeable to proceeding with heparin. Upon multiple reassessments here in the emergency the patient has been symptom-free without any chest pain or burning. I then discussed the case with the hospitalist. Please refer to further documentation regarding his stay. I also updated the patient throughout his time here in the emergency department upon findings and plan of care. His was also at bedside that and was educated upon todays findings and both and patient were able to ask questions that I answered here in the ED. Case was discussed with the attending physician. An order was placed for continuous cardiac monitoring. The monitor shows a rate of 100 with sinus rhythm. I attest that I have personally reviewed the patient medication list. GCS: 15 In the evaluation and treatment of this patient, the following differential diagnoses were considered: NV, ASC, Dysrhythmia, Angina, Mediastinitis, GERD, Esophagitis, dissection, PE, Pneumonia, Bronchitis, Costochondritis, Rib Fracture, Zoster, among others Impression & Plan Chest pain Discharge Plan Visit Data Chief Complaint: Cardiac Assessment ED Provider: Ernestina Neff ED Midlevel Provider: Chau Delvalle Discharge Problem: Chest pain Patient Disposition: Admitted As Inpatient Condition: Good Discharge Instructions Interventions: ED Discharge Assessment Last Done: 03/24/23 17:20
[2023-03-24 15:25] LABS: Basophils # (auto) 0.04 K/uL (0-0.2); Basophils % (auto) 0.7 %; Eosinophils % (auto) 7.2 %; Hemoglobin 14.5 g/dl (14.0-18.0); Immature Granulocytes # (auto) 0.01 K/uL (0.01-0.20); Immature Granulocytes % (auto) 0.2 %; Lymphocytes # (auto) 1.57 K/uL (1.2-3.4); Lymphocytes % (auto) 28.4 %; Mean Corpuscular Hemoglobin 30.1 pg (25.0-34.0); Mean Corpuscular Hgb Conc 35.4 g/dL (32.0-36.0); Mean Corpuscular Volume 85.1 fL (80.0-100.0); Mean Platelet Volume 8.5 fL (9.4-12.4); Monocytes # (auto) 0.54 K/uL (0.11-0.59); Monocytes % (auto) 9.8 %; Neutrophils # (auto) 2.96 K/uL (1.40-6.50); Neutrophils % (auto) 53.7 %; Platelet Count 277 K/uL (130-400); RDW Coefficient of Variation 12.1 % (11.5-14.5); RDW Standard Deviation 37.5 fL (36.4-46.3); Red Blood Count 4.82 M/uL (4.70-6.10); White Blood Count 5.52 K/ul (4.8-10.8)
--- NOTE | 2023-03-24 15:26 | XRay Report ---
XR chest 1V portable CLINICAL HISTORY: Atypical chest pain. COMPARISON STUDY: Chest radiograph May 29, 2016. FINDINGS: There is no pneumothorax or pleural effusion. No consolidation is identified to suggest pne umonia. Cardiac size is normal. Mediastinal contours are normal. A 4 mm nodular density projects over the right lower lung. IMPRESSION: 1. No acute cardiopulmonary findings. 2. 4 mm nodular density which projects of the right lower lung. This may reflect a nipple shadow. How ever, a pulmonary nodule could appear similar. Follow-up PA chest radiograph with nipple markers is r ecommended. ACT 112: Negative or not required by law. Electronically signed by: Lukas Morrison M.D. 03/24/2023 3:24 PM
[2023-03-24 15:46] LABS: Albumin Globulin Ratio 1.5 (0.9-2); Albumin Level 4.5 gm/dl (3.4-5.0); BUN Creatinine Ratio 21.9 (10-20); Bilirubin,Total 0.5 mg/dl (0.2-1.0); Calcium 9.7 mg/dl (8.6-10.3); Creatinine Clr Calc Pharmacy 100.2 ml/min; Est GFR (African American) 114.4 ml/min; Est GFR (Non-African American) 98.7 ml/min; Globulin 3.1 gm/dl (2.5-4.0); Magnesium 1.9 mg/dl (1.7-2.4); Potassium 4.3 mmol/L (3.5-5.1); Total Protein 7.6 gm/dl (6.0-8.3)
[2023-03-24 15:50] LABS: Troponin I High Sensitivity 9.3 pg/ml (0-20)
[2023-03-24 15:53] LABS: Partial Thromboplastin Time 29.6 Seconds (21.0-31.0); Prothrombin Time 10.9 Seconds (9.0-12.0)
[2023-03-24] MEDS ORDERED: Heparin IV Adult Wt-Based Low-Dose WITH Bolus Protocol STA (16:53)
[2023-03-24] MEDS ORDERED: MIRTAZAPINE TAB 15 MG TAB PO PRN (16:55)
[2023-03-24] MEDS ORDERED: NITROGLYCERIN SL 0.4 MG/TAB TAB SL PRN (16:55)
--- NOTE | 2023-03-24 16:58 | History & Physical Report ---
Date of Service March 24, 2023 Assessment & Plan (1) Unstable angina: Plan: Patient admitted for unstable angina. Patient will be placed on heparin drip. Case discussed with Cardiology, patient will have a cardiac cath in AM. Will monitor trop, initial trop is negative. Will resume home meds. If trop is elebvtaed, will consider adding metoprolol succinate and perhaps holding amlodipine depenidng on his BP> (2) Diabetes mellitus type 1: Plan: Previous A1C is 9. Will obtain a repeat, will consult glycemic control. (3) HTN (hypertension): Plan: resume all meds, will consider switching amldipine to BB. (4) CAD S/P percutaneous coronary angioplasty: Plan: as per above. (5) Depression with anxiety: Plan: Resume mirtazapine. may consider adding another agent after primary problem has resolved. (6) Dyslipidemia: Plan: resume statin (7) Alcohol abuse: Plan: will check for alcohol withdrawal. Patient did not report alcohol abuse, but chart states he drinks about 3 beers a day. History of Present Illness Chief Complaint: chest pain Primary Care Provider: Gautam Sunshine DO 62 yo male presents to the ED from Dr. Sunshine's office for more frequent chest pain. Patient reports having history of type 1 diabetes, hypertension CAD status post percutaneous coronary stay in 2014, depression with anxiety, lipidemia, hypothyroidism, alcohol abuse and major depressive disorder. He is crying when I am interviewing him and reports he just has alot of stressors in his life. His is at bedside and agrees but reports he does not like to talk about them. Patient reports that this chest pain has been intermittent for the past few weeks. Patient reports that it would occur on exertion but then resolve with resolve. He reports that he was given nitroglycerin, which would also help with his symptoms. Patient reports that this pain would occur at rest, he would state that the pain was midsternum and radiate to his left shoulder. He could not describe it but reports describing it as burning at times. He reports this pain occurred today because of stressors and was present during his routine appointment, this prompted him to go to the ED> Allergies Allergy/AdvReac Type Severity Reaction Status Date / Time buspirone [From BuSpar] Allergy Intermediate "put me to Verified 03/24/23 16:16 sleep driving", made very drowsy Home Medications Medication Instructions Recorded Confirmed Type aspirin 81 mg tablet,delayed 81 mg PO QAM 08/06/18 03/24/23 History release (Justice Low Dose Aspirin) blood-glucose meter (Accu-Chek #1 ea 04/12/19 01/02/23 History Guide Glucose Meter) blood-glucose meter,continuous #1 ea 01/16/22 01/02/23 Rx (Dexcom G6 Staking Press Operator) thiamine HCl (vitamin B1) 100 mg 100 mg PO DAILY #90 tabs 03/08/22 03/24/23 Rx tablet mirtazapine 7.5 mg tablet 7.5 mg PO DAILY PRN Sleep 04/22/22 03/24/23 History blood sugar diagnostic (Accu-Chek #50 ea 05/07/22 01/02/23 Rx Guide test strips) blood-glucose sensor (Dexcom G6 #9 ea 10/30/22 03/24/23 Rx Sensor device) blood-glucose transmitter (Dexcom #1 ea 10/30/22 03/24/23 Rx G6 Transmitter device) pen needle, diabetic 32 gauge x #150 ea 10/30/22 03/24/23 Rx 5/32" (BD Vashti 2nd Gen Pen Needle) insulin aspart U-100 100 unit/mL 8 unit (0.08 mL) subcut TID #1 box 01/02/23 03/24/23 Rx (3 mL) subcutaneous pen (Novolog FlexPen U-100 Insulin aspart) lancets (Accu-Chek Fastclix Lancet #50 ea 01/02/23 01/02/23 History Drum) insulin degludec 100 unit/mL (3 32 unit (0.32 mL) subcut QPM #15 mL 01/06/23 03/24/23 Rx mL) subcutaneous pen (Tresiba FlexTouch U-100 insulin) lisinopril 40 mg tablet 40 mg PO QAM #90 tabs 01/16/23 03/24/23 Rx atorvastatin 40 mg tablet 40 mg PO HS #90 tabs 01/23/23 03/24/23 Rx nitroglycerin 0.4 mg sublingual 0.4 mg sublingual UD PRN Angina 01/23/23 03/24/23 Rx tablet #25 tabs amlodipine 10 mg tablet 10 mg PO QAM #30 tabs 02/06/23 03/24/23 Rx levothyroxine 112 mcg tablet 112 mcg PO QAM #90 tabs 02/14/23 03/24/23 Rx Past Med/Surg History Medical History Alcohol abuse 3 beers per day Anxiety Depression Diabetes mellitus type 1 History of anesthesia reaction "during discectomy in early @ [facility] [place] had an asthma attack--had to have a breathing tx" History of COVID-19 Aug 2020 > tested at [facility], had no symptoms > was due to exposure Hyperlipidemia Hypertension Hypothyroidism MDD (major depressive disorder) Myocardial Infarction 2014--follows with Dr. Sullivan Osteoarthritis Surgical History History of appendectomy History of colonoscopy History of discectomy L4-L5 History of heart artery stent 2014 @ [facility] History of tonsillectomy History of wisdom tooth extraction Family History Father Family history of diabetes mellitus Family hx colonic polyps Mother Family history of diabetes mellitus Cardiac disorder Myocardial infarction Sister Family history of diabetes mellitus Grandfather (Maternal) Family history of diabetes mellitus Grandfather (Paternal) Family history of diabetes mellitus Grandmother (Paternal) Family history of diabetes mellitus Grandmother (Maternal) Family history of diabetes mellitus Brother Family history of diabetes mellitus Other No family history of adverse response to anesthesia Denies family history of Ovarian cancer Prostate cancer Breast cancer Colorectal cancer Social History Smoking Status: Never smoker Tobacco Type: Cigarettes Age Quit Using Tobacco: 17; Cigarettes Per Day: social; Second Hand Exposure: Yes (Patient states "not much"); Do You Dip or Chew Tobacco: Yes; Tobacco Cessation Education Requested by Patient: No Hx Alcohol Use: Yes Alcohol type: beer Alcohol Intake Frequency Comment: 1-2 couple days a week Hx Substance Use: Yes Prescribed Medications: Marijuana Last Used Substance: Hours (ago) Last Used Substance Other:: 09/02/2018 Substance Use Type Other:: daily use, no card, advised 3 day hold Preferred Language: Sammarinese Communication Ability: Effective Visual Impairment: No Limitations Hearing Ability: Normal Commuter Train Operator Required: No Beliefs That Will Affect Care: None marital status: Current Living Situation: Spouse Current Living Situation Comment: home current occupational status: retired How many Children do You have: 3 Other Information That Helps Us Care for You: No Feels Safe at Home: Yes Safety Concerns: Feels Safe At This Time Childhood Exposure to Second-Hand Smoke: Yes caffeine: Yes (coffee ) Dental Care, Regularly: No Physical Activity Frequency: Does not Exercise Seatbelt Use: always Sunscreen Use: No Assistive Devices: None Review of Systems Constitutional: no fever and no body aches Eyes: no blind spots Ear, Nose, Mouth, Throat: no ear pain and no ear trauma Respiratory: no cough and no dyspnea Cardiovascular: + chest pain, + radiating jaw, neck or arm pain and + dyspnea on exertion Gastrointestinal: no abdominal pain Genitourinary: no dysuria Musculoskeletal: no back pain and no radicular pain Integumentary: no rash Neurologic: no gait abnormality Psychiatric: no behavioral changes Endocrine: no polydipsia and no polyphagia Hematologic / Lymphatic: no easy bleeding Allergy / Immunological: no GI upset with certain foods Physical Exam Constitutional: WD/WN, vitals as above Eyes: PERRL, conjunctivae normal, anicteric sclerae ENMT: external ear and nose normal, oropharynx normal Neck: trachea midline, no thyromegaly Respiratory: normal respiratory effort, lungs clear to auscultation Cardiovascular: RRR, no murmur, no edema Gastrointestinal (Abdomen): normal bowel sounds, soft, nontender, no hepatosplenomegaly Musculoskeletal: no cyanosis or clubbing, extremities motor strength 5/5 Skin: no rashes, warm and dry Neurologic: PERRL, EOMI, accommodation nl, no face palsy, no dysarthria Psychiatric: A+Ox3, euthymic affect Lymphatic: no cervical or axillary lymphadenopathy Results & Data Results & Data Vital Signs (Past 12 Hours) Vital Signs Temp Pulse Pulse Resp BP BP Pulse Ox 03/24/23 16:18 83 21 154/79 H 97 03/24/23 14:00 98 H 22 168/82 H 96 03/24/23 14:25 96 03/24/23 14:06 101 H 03/24/23 14:02 36.7 C 99 H 20 163/83 H 97 O2 Del Method 03/24/23 16:18 Room Air 03/24/23 14:00 Room Air 03/24/23 14:25 Room Air 03/24/23 14:06 07/24/23 14:02 Room Air PG Care Time/CCT Total # of Minutes Spent Total Time Spent with Patient: Total time spent is greater than 50% in coordination of care (as documented) at patient's floor/unit and/or counseling patient: Coding Level of Care Code 51212 INT INP/OBS CARE 3/75MIN Diagnoses Unstable angina I20.0 Diabetes mellitus type 1 E10.9 HTN (hypertension) I10 CAD S/P percutaneous coronary angioplasty I25.10; Z98.61 Depression with anxiety F41.8 Dyslipidemia E78.5 Alcohol abuse F10.10
[2023-03-24] MEDS ORDERED: HEPARIN SOD (PORCINE) 1000 UNIT/ML IV ONE ×2 (17:08)
[2023-03-24] MEDS: HEPARIN SODIUM/DEXTROSE 25,000 UNITS/500 ML BAG IV SCH (17:09)
[2023-03-24 19:25] LABS: Partial Thromboplastin Ratio > 4.9
[2023-03-24 19:32] LABS: Partial Thromboplastin Time > 139.0 Seconds (21.0-31.0)
[2023-03-24] MEDS ORDERED: LANTUS PER UNIT CHARGE SQ SCH (21:00)
[2023-03-24] MEDS ORDERED: NON-FORMULARY MEDICATION (Insulin Aspart U-100 [Novolog Flexpen U-100 Insulin] 100 unit/mL SQ SCH (21:00)
[2023-03-24] MEDS: ATORVASTATIN 40 MG TAB PO SCH (21:06)
[2023-03-24 21:13] LABS: Partial Thromboplastin Ratio 1.5
[2023-03-24 21:39] LABS: Partial Thromboplastin Time 42.6 Seconds (21.0-31.0)
[2023-03-25 05:10] LABS: Partial Thromboplastin Ratio 1.4; Partial Thromboplastin Time 38.8 Seconds (21.0-31.0)
[2023-03-25] MEDS ORDERED: LEVOTHYROXINE SODIUM 112 MCG TABLET PO SCH (06:30)
[2023-03-25] MEDS ORDERED: PHARMACY GLYCEMIC MGMT CONSULT PRN (06:44)
[2023-03-25] MEDS ORDERED: METOPROLOL SUCC 50MG EXT REL TAB PO STA (06:56)
[2023-03-25] MEDS ORDERED: DEXTROSE 50% 50 ML SYRINGE IV PRN (07:30)
[2023-03-25] MEDS ORDERED: GLUCAGON FOR INJ 1 MG VIAL IM PRN (07:30)
[2023-03-25] MEDS ORDERED: INSULIN ASPART PER UNIT CHARGE SC SCH (07:30)
[2023-03-25] MEDS ORDERED: GLUCOSE 10 TAB/TUBE PO PRN (07:30)
[2023-03-25] MEDS ORDERED: CARBOHYDRATES FOR HYPOGLYCEMIA PO PRN (07:30)
[2023-03-25] MEDS ORDERED: GLUCOSE 40% GEL 15 GM TUBE PO PRN (07:30)
[2023-03-25 07:56] LABS: Estimated Average Glucose 160 mg/dl; Hemoglobin A1C 7.2 % (4.5-5.6)
[2023-03-25] MEDS ORDERED: MIDAZOLAM HCL 1 MG/ML 2ML VIAL ONE (08:09)
[2023-03-25] MEDS ORDERED: HEPARIN (PORCINE) 1000 UNIT/ML 10 ML (CATH LAB USE ONLY) ONE (08:09)
[2023-03-25 08:10] LABS: Albumin Globulin Ratio 1.6 (0.9-2); Albumin Level 4.4 gm/dl (3.4-5.0); BUN Creatinine Ratio 19.5 (10-20); Bilirubin,Total 0.6 mg/dl (0.2-1.0); Calcium 9.3 mg/dl (8.6-10.3); Chol HDL Ratio 2.6 (0-5); Creatinine Clr Calc Pharmacy 84.1 ml/min; Est GFR (African American) 106.5 ml/min; Est GFR (Non-African American) 91.9 ml/min; Globulin 2.8 gm/dl (2.5-4.0); Potassium 4.6 mmol/L (3.5-5.1); Total Protein 7.2 gm/dl (6.0-8.3)
[2023-03-25] MEDS ORDERED: niCARdipine HCL INJ 2.5 MG/ML 10 ML AMP ONE (08:10)
[2023-03-25] MEDS ORDERED: fentaNYL citrate PF 100 MCG/2 ML VIAL ONE (08:10)
[2023-03-25] MEDS ORDERED: NITROGLYCERIN/D5W 100MCG/ML 20ML SYR ONE (08:11)
--- NOTE | 2023-03-25 08:24 | Pre Anesthesia Assessment ---
Date of Service March 25, 2023 Pre Sedation Assessment Vital Signs Temp Pulse Pulse Resp BP BP Pulse Ox 03/25/23 07:09 89 03/25/23 03:43 36.7 C 113 H 18 122/76 90 03/24/23 23:18 36.9 C 104 H 18 110/72 96 03/24/23 19:03 36.7 C 100 H 18 163/77 H 97 03/24/23 17:40 03/24/23 17:40 36.7 C 100 H 20 142/81 H 97 03/24/23 17:20 03/24/23 16:18 83 21 154/79 H 97 03/24/23 14:00 98 H 22 168/82 H 96 03/24/23 14:25 96 03/24/23 14:06 101 H 03/24/23 14:02 36.7 C 99 H 20 163/83 H 97 O2 Del Method 03/25/23 07:09 03/25/23 03:43 Room Air 03/24/23 23:18 Room Air 03/24/23 19:03 Room Air 03/24/23 17:40 Room Air 03/24/23 17:40 Room Air 03/24/23 17:20 Room Air 03/24/23 16:18 Room Air 03/24/23 14:00 Room Air 03/24/23 14:25 Room Air 03/24/23 14:06 03/24/23 14:02 Room Air Cardiovascular RRR, no murmur, no edema Respiratory normal respiratory effort, lungs clear to auscultation Pre-Sedation Airway Assessment Smoking Status: Never smoker Mallampati 2 ASA 3 Notes The planned sedation has been discussed with the patient. Informed Consent was obtained. I have identified the patient, determined the appropriateness of sedation and have assessed the patient immediately prior to the procedure. All medicine(s) and interventions are by my order.
--- NOTE | 2023-03-25 08:29 | Electrocardiogram Report ---
Test Reason : Blood Pressure : / mmHG Vent. Rate : 105 BPM Atrial Rate : 105 BPM P-R Int : 150 ms QRS Dur : 092 ms QT Int : 328 ms P-R-T Axes : 075 063 091 degrees QTc Int : 433 ms Sinus tachycardia Left atrial enlargement Old Anteroseptal infarct ST depression in Anterolateral leads Abnormal ECG When compared with ECG of 29-OCT-2016 15:03, Vent. rate has increased BY 46 BPM Criteria for Anteroseptal infarct now present ST depression in Anterolateral leads now present Confirmed by Jose Maxwell ([id number]) on 03/25/2023 8:28:42 AM Referred By: REFERRED SELF Confirmed By:Jose Maxwell
[2023-03-25] MEDS ORDERED: ASPIRIN 81 MG CHEW ONE (08:31)
[2023-03-25] MEDS ORDERED: LIDOCAINE 1% LOCAL 20 ML VIAL ONE (08:49)
[2023-03-25] MEDS ORDERED: amLODIPine BESYLATE 5 MG TAB PO SCH (09:00)
[2023-03-25] MEDS ORDERED: LANTUS PER UNIT CHARGE SC SCH (09:00)
[2023-03-25] MEDS ORDERED: ASPIRIN 81 MG ECTAB PO SCH (09:00)
[2023-03-25] MEDS ORDERED: THIAMINE HCL 100 MG TAB PO SCH (09:00)
[2023-03-25] MEDS ORDERED: lisinopril 40 MG TAB PO SCH (09:00)
[2023-03-25] MEDS ORDERED: METOPROLOL TARTRATE 1 MG/ML VIAL IV ONE (09:20)
--- NOTE | 2023-03-25 09:56 | Post Anesthesia Assessment ---
Date of Service March 25, 2023 Post Sedation Assessment Vital Signs Temp Pulse Pulse Resp BP BP Pulse Ox 03/25/23 09:45 74 18 103/63 95 03/25/23 09:30 76 18 144/76 H 94 03/25/23 08:25 112 H 18 168/83 H 96 03/25/23 07:09 89 03/25/23 03:43 36.7 C 113 H 18 122/76 90 03/24/23 23:18 36.9 C 104 H 18 110/72 96 03/24/23 19:03 36.7 C 100 H 18 163/77 H 97 03/24/23 17:40 03/24/23 17:40 36.7 C 100 H 20 142/81 H 97 03/24/23 17:20 03/24/23 16:18 83 21 154/79 H 97 03/24/23 14:00 98 H 22 168/82 H 96 03/24/23 14:25 96 03/24/23 14:06 101 H 03/24/23 14:02 36.7 C 99 H 20 163/83 H 97 O2 Del Method 03/25/23 09:45 Room Air 03/25/23 09:30 Room Air 03/25/23 08:25 Room Air 03/25/23 07:09 03/25/23 03:43 Room Air 03/24/23 23:18 Room Air 03/24/23 19:03 Room Air 03/24/23 17:40 Room Air 03/24/23 17:40 Room Air 03/24/23 17:20 Room Air 03/24/23 16:18 Room Air 03/24/23 14:00 Room Air 03/24/23 14:25 Room Air 03/24/23 14:06 03/24/23 14:02 Room Air Recovery Score Activity: Moves 4 extremities Respiration: Deep Breath/Cough Circulation: +/-20% PreAnes Value Consciousness: Fully Awake Oxygen Saturation: > 92% On Room Air Post Anesthesia Score: 10 Discharge Sedation Level of Care: Fast Track Phase II Post Sedation Plan On clinical assessment, the patient appears to have tolerated the sedation without complications. Patient is recovering as anticipated. Patient will continue to be monitored by nursing and may be discharged when sedation discharge criteria are met per below protocol. Upon Completions of procedure up to 15 minutes continue every 5 minute vital signs and the P.A.R. score; then discharge to a Phase I or Fast Track to Phase II per the following guidelines: * Discharge Patient to appropriate Phase II area if PAR is 8 or greater or return to pre- procedure baseline. The post - procedure orders will be as directed. * If PAR score is less than 8 or not return to pre-procedure baseline then patient will follow Phase I monitoring till PAR is reached for Phase II. The Phase I may be done in procedure room or may call to secure a Phase I area. * If naloxone or flumazenil are used for reversal, hold in Phase I for continued monitoring from when last reversal dose was given for a minimum of 60 minutes or longer pending the nurse and/or physician discretion of patient condition before discharge to Phase II. Please call the Sedation Physician to re-evaluate and complete post-note for discharge to Phase II area. Do NOT discharge from procedure sedation or Phase 1 until post- sedation evaluation note is complete by procedure /sedation MD Sedation Discharge Instructions to be given to the patient at discharge to home. [facility] Procedure Codes (Charges) Indication for Procedure Indication for procedure: NSTEMI Sedation/Anesthesia Procedure 1: Sedation/Anesthesia: 41974 Mod Sedation by the same physician;Init15 Min Child Age 5 & Up (Initial 15-minute, start time 0856) Total Sedation Time (minutes): 28 Procedure 2: Sedation/Anesthesia: 11739 Mod Sedation by the same physician; Ea [id number] Minutes (Additional 13 min, end time 0924) Total Sedation Time (minutes): 28
[2023-03-25] MEDS ORDERED: METOPROLOL TARTRATE 25 MG TAB PO SCH (10:00)
--- NOTE | 2023-03-25 10:00 | Cardiac Catheterization ---
[facility] Data: Transportation Coordinator Cardiac Status Clinical evaluation leading to the procedure CAD Presenation: Non STEMI Anginal Classification: CCS IV Heart Failure: No Cardiogenic Shock within 24 Hours: No Cardiac Arrest within 24 Hours: No Imaging Studies Past 6 Months: No Stress Studies Past 6 Months: No Coronary Anatomy Dominant: Right Left Main (% Stenosis): Ostial (50%) and Distal (50%) LAD (% Stenosis): Proximal (50 to 60%) D1 (% Stenosis): Normal (Diffuse mild) D2 (% Stenosis): Proximal (50 to 60%) Circumflex (% Stenosis): Proximal (50 to 70%) OM1 (% Stenosis): Proximal (40 to 50%) RCA (% Stenosis): Proximal (70%), Mid (Thrombus plus subtotal occlusion. Stent patent) and Distal (100% LEAD JAVA DEVELOPER ARCHITECT) R PDA (% Stenosis): Normal R PL1 (% Stenosis): Normal Diagnostic Physicians Name: Kaushal Aguilar MD, PhD Closure Device Percutaneous Entry Location: Radial Closure Device: Radial Band Recommendations: Medical Therapy and/or Counseling and CABG Cardiac Cath Procedure Full Procedure Date March 25, 2023 Pre-Procedure Diagnosis Pre-Procedure Diagnosis: Non STEMI AUC Score AUC Score: 07 Post-Procedure Diagnosis Post-Procedure Diagnosis: Severe CAD Procedure(s) Performed Procedure(s) Performed: Coronary Angiography and Fractional Flow [place] Decision Support Manager Kaushal Aguilar MD, PhD Estimated Blood Loss Estimated Blood Loss: 5 mL Medication(s) Medication(s): Fentanyl, Heparin, Lidocaine 1%, Metoprolol, Nicardipine, Nitroglycerin and Versed Summary of Findings Brief description: Patient was brought to the cardiac catheterization suite where he was shaved and prepped in a sterile fashion. Sedated using IV Versed and fentanyl. Soft tissues of the right wrist were anesthetized using 1 mL of 1% Xylocaine. The right radial artery was accessed with a modified Seldinger technique and a 6 Swedish radial artery glide sheath was placed. Patient was provided anticoagu lation with IV heparin and antispasmodics including nicardipine and nitroglycerin. All catheters were advanced and exchanged over a 0.035 J-tip wire. Left coronary angiography was performed in orthogonal views with a 5 Swedish [place] 4 diagnostic catheter. Right coronary angiography was performed in orthogonal views with a 5 Swedish [place] 4 diagnostic catheter. Diagnostic catheters were removed. We next proceeded with IFR analysis of the left main ACT was checked and additional heparin was provided as needed to maintain therapeutic anticoagulation. 5 Swedish EBU 3.0 guide catheter was advanced to the left coronary cusp. Through this, the Omni IFR wire was advanced and positioned with its transducer just beyond the distal catheter tip. Pressures were equalized. The guide catheter was then used to engage the left main. The Omni wire was then advanced beyond the lesion in the left main and the guide catheter was then disengaged from the left main. After normal saline flush the IFR was sampled twice. The guidewire was then removed from the patient. The guide catheter was removed from the patient. Radial artery sheath was removed. Hemostasis was obtained using the TR band. Patient was hemodynamically stable and asymptomatic at that point. Of note, he did have chest pain symptoms while the left main was engaged with EKG changes and pressure dampening. Patient was then returned to the recovery area. This ended the case. Coronary angiography findings: VHC-ybnlp-ygiyuyr vessel which trifurcates into LAD, circumflex, and ramus. It is moderately calcified. There is an ostial 50% stenosis and a distal 40 to 50% stenosis. The pressure waveform dampens with engagement and there is ST elevations and chest pressure noted by the patient with contrast injection. LAD- Large caliber and transapical. Proximal segment with moderate calcification and diffuse at least mild disease until the first branch where there appears to be a focal 50 to 60% stenosis it gives a medium to large caliber branching first diagonal with diffuse mild disease. There are several large septal branches. The mid segment has mild diffuse disease. Second diagonal is large and tortuous with proximal disease of 50 to 60% narrowing. The remainder of the LAD has mild scattered plaques. There is an intramyocardial segment in the early distal vessel. Ramus-this is medium caliber long and tortuous. Peers to have ostial to proximal 80% stenosis. WRi-ajbox-terndzq vessel running in the AV groove where its first branch is a large atrial branch. Proximal segment has diffuse disease of at least moderate severity on the order of 50 to 70% narrowing. Then it becomes a large branching OM1 which has proximal 40 to 50% narrowing. RCA- This is large caliber and dominant. It has a ritter's crook proximal segment with 70% stenosis. Then, the mid segment has diffuse mild disease and there appears to be a thrombus before a previously placed stent. The stent appears patent but at its proximal edge peers to be 99 to 100% occluded. There is FRITZ I flow in this segment and then the early distal RCA is 100% occluded. The large PDA and posterolateral branches fill via left to right collateralization. IFR analysis of left main: 0.86, 0.87-therefore, this is hemodynamically significant. No evidence of dissection or perforation post IFR analysis FRITZ-3 flow post IFR analysis Summary: 1. Severe multivessel coronary disease including left main, LAD, diagonal, circumflex/OM, and RCA. There are reasonable distal targets for coronary artery bypass grafting. 2. Recommend referral to tertiary center with CT surgical evaluation for multivessel coronary disease/CABG in a diabetic patient. 3. Optimize medical therapy for secondary prevention of coronary disease including low-dose aspirin, high intensity statin therapy, beta-pierre, and DEJAH inhibitor/ARB as tolerated. 4. Patient will remain on heparin drip. We will await results of echocardiogram. Hemodynamics Rest Ao:: 108/70 mmHg Final Ao: 145/74 mmHg LV: Not performed Recommendations Recommendations: Medical Therapy and/or Counseling and CABG Radiation Exposure (mGy) 1059 mGy, fluoroscopy time 4.6 minutes Contrast (mls) 114 mL Anesthesia 2 mg IV Versed, 75 mcg IV fentanyl (start time 08, end time 923) Procedural Complication(s) None Disposition Recovery Room\PACU I attest to the content of the Intraoperative Record and any orders documented therein. Any exceptions are noted below. [facility] Card Cath Procedure Codes Cardiac Catheterization Procedure 1: Cardiovascular Cath Procedures: 87474 Coronaries Procedure 2: Cardiovascular Cath Procedures: 79738 (Doppler) Pressure Wire (Left main) Moderate Sedation Procedure 1: Sedation/Anesthesia: 08970 Mod Sedation by the same physician;Init15 Min Child Age 5 & Up (Initial 15 min, start time 0856) Procedure 2: Sedation/Anesthesia: 15672 Mod Sedation by the same physician; Ea [id number] Minutes (Additional 13 min, end time 24) PG Care Time/CCT Total # of Minutes Spent Total Time Spent with Patient: Total time spent is greater than 50% in coordination of care (as documented) at patient's floor/unit and/or counseling patient:
[2023-03-25] MEDS ORDERED: Nursing to Pharmacy Communication SCH (11:00)
--- NOTE | 2023-03-25 11:07 | Pharmacy Report ---
Pharmacy Glycemic Short Note 2 - Date of Service March 25, 2023 - Glycemic Short BSG Results (Last 24 hours): 03/24/23 03/24/23 03/24/23 13:54 18:01 20:07 Glucose 216 H POC Glucose 185 H 171 H 03/25/23 03/25/23 03/25/23 07:16 08:34 10:18 Glucose 228 H POC Glucose 214 H 257 H OUTPATIENT ANTIDIABETIC REGIMEN: * Tresiba 32 units HS, novolog 4-8 units TIDM (patient reports CR of 8) ASSESSMENT: * 62 year old male admitted with chest pain, s/p roving tester laboratory this AM. Type 1 diabetic - pharmacy consulted for glycemic management. * Talked with patient and denies taking any basal insulin yesterday. Expressed my concerns for BSGs to continue to rise today >24 hours without basal insulin. Patient agreeable to resume basal insulin, okay with 30 units of basal insulin x 1 today at lunch. Plan to change time of basal insulin to dinner tomorrow, then HS the following day so that patient is back on an HS schedule per request * Patient states he using CR of 8 - will utilize same parameter for now PLAN FOR INPATIENT GLYCEMIC CONTROL: * Hold outpatient oral diabetes medications * Basal insulin * Lantus 30 units x 1 * Bolus insulin * NovoLog per scale ACHS or Q6hrs while NPO * Goal Range: Low 110 mg/dL - High 140 mg/dL * Correction Factor: 40 mg/dL/unit * Nutritional / Prandial insulin per carb ratio of 1 unit per 8 grams CHO consumed
[2023-03-25] MEDS ORDERED: LANTUS PER UNIT CHARGE SC ONE (11:30)
[2023-03-25] MEDS: INSULIN ASPART PER UNIT CHARGE SC SCH ×3 (12:15→21:42)
[2023-03-25 12:50] LABS: Partial Thromboplastin Ratio 4.1
[2023-03-25 12:59] LABS: Partial Thromboplastin Time 115.4 Seconds (21.0-31.0)
--- NOTE | 2023-03-25 13:41 | XCELERA ---
[id number] \\[id number]
[2023-03-25] MEDS ORDERED: LORazepam 0.5 MG TAB PO STA (17:05)
--- NOTE | 2023-03-25 17:05 | Discharge Summary ---
Date of Service March 25, 2023 Admission HPI Per Admitting Provider 62 yo male presents to the ED from Dr. Sunshine's office for more frequent chest pain. Patient reports having history of type 1 diabetes, hypertension CAD status post percutaneous coronary stay in 2015, depression with anxiety, lipidemia, hypothyroidism, alcohol abuse and major depressive disorder. He is crying when I am interviewing him and reports he just has alot of stressors in his life. His is at bedside and agrees but reports he does not like to talk about them. Patient reports that this chest pain has been intermittent for the past few weeks. Patient reports that it would occur on exertion but then resolve with resolve. He reports that he was given nitroglycerin, which would also help with his symptoms. Patient reports that this pain would occur at rest, he would state that the pain was midsternum and radiate to his left shoulder. He could not describe it but reports describing it as burning at times. He reports this pain occurred today because of stressors and was present during his routine appointment, this prompted him to go to the ED> Principal Diagnosis 3 vessel coronary artery disease Discharge Exam ENMT external ear and nose normal, oropharynx normal Neck trachea midline, no thyromegaly Respiratory normal respiratory effort, lungs clear to auscultation Cardiovascular RRR, no murmur, no edema Gastrointestinal (Abdomen) normal bowel sounds, soft, nontender, no hepatosplenomegaly Musculoskeletal no cyanosis or clubbing, extremities motor strength 5/5 Skin no rashes, warm and dry Neurologic PERRL, EOMI, accommodation nl, no face palsy, no dysarthria Psychiatric A+Ox3, euthymic affect Lymphatic no cervical or axillary lymphadenopathy Discharge Data Allergies Allergy/AdvReac Type Severity Reaction Status Date / Time buspirone [From BuSpar] Allergy Intermediate "put me to Verified 03/24/23 16:16 sleep driving", made very drowsy Consultations 03/24/23 16:17 ED Decision to Admit Stat 03/24/23 21:14 Consult Cardiology Routine 03/25/23 13:31 Burn CD for patient Routine Procedures Performed Operation Date: 03/25/23 08:00 Actual Procedures p Cineradiography w/Routine Exam - Kaushal Aguilar MD, PhD p Cath, Coronaries ONLY (no LV) - Kaushal Aguilar MD, PhD Ordered Studies 03/25/23 06:47 CL Cath Imgs for PACS use only Routine Hospital Course (1) Unstable angina: Patient admitted for unstable angina. Patient will be placed on heparin drip. Case discussed with Cardiology, patient will have a cardiac cath in AM. Will monitor trop, initial trop is negative. Will resume home meds. If trop is elebvtaed, will consider adding metoprolol succinate and perhaps holding amlodipine depenidng on his BP> (2) Diabetes mellitus type 1: Previous A1C is 9. Will obtain a repeat, will consult glycemic control. (3) HTN (hypertension): resume all meds, will consider switching amldipine to BB. (4) CAD S/P percutaneous coronary angioplasty: as per above. (5) Depression with anxiety: Resume mirtazapine. may consider adding another agent after primary problem has resolved. (6) Dyslipidemia: resume statin (7) Alcohol abuse: will check for alcohol withdrawal. Patient did not report alcohol abuse, but chart states he drinks about 3 beers a day. Total Time Total Time Spent Total Time Spent (In Minutes): 60 Discharge Plan Discharge Items Patient Disposition: Transfer Acute Care Hospital Reason For Visit: UNSTABLE ANGINA Discharge Diagnosis: Three Vessel Coronary Artery Disease Needs CABG Condition on Discharge: Good Health Concerns: Continue healthy lifestyle Goals: Restorative care Activity: As commented below Lifting: No more than 5 pounds Bathing: May shower/bathe in 3 days Sexual Activity: Wait until after follow-up appointment Exercise/Sports: Wait until after follow-up appointment Weightbearing: Full weightbearing Non-emergency contact: Primary Care Provider Call non-emergency contact if: you have any medication questions, your symptoms worsen and your temperature is above 101 Follow-up/Referrals: Gautam Sunshine DO [Primary Care Provider] - Addtl Attending Provider Instructions: na Pending Studies at Discharge: No Stand-Alone Forms: My [facility] Skilled Items Patient informed of condition?: Yes DNR: No Discharge Level of Care: Other Communicable Disease: No Discharge Prognosis: Improving Lines: Peripheral IV Urinary Catheter: No Medications and DC Order Prescriptions: New lorazepam [Ativan] 0.5 mg tablet 0.5 mg PO DAILY Qty: 7 0RF Continued insulin degludec [Tresiba FlexTouch U-100] 100 unit/mL (3 mL) insulin pen 32 unit SUBCUT QPM Qty: 15 5RF lisinopril 40 mg tablet 40 mg PO QAM Qty: 90 3RF atorvastatin 40 mg tablet 40 mg PO HS Qty: 90 3RF nitroglycerin 0.4 mg tablet, sublingual 0.4 mg Sublingual UD PRN (Reason: Angina) Qty: 25 5RF amlodipine 10 mg tablet 10 mg PO QAM Qty: 30 6RF levothyroxine 112 mcg tablet 112 mcg PO QAM Qty: 90 0RF Rx Instructions: patient to take 6 days per week starting 01/08/22 doesn't take on Wednesdays insulin aspart U-100 [Novolog FlexPen U-100 Insulin] 100 unit/mL (3 mL) insulin pen 8 unit subcut TID Qty: 1 3RF Rx Instructions: Use your pre meal sliding scale; TDD 30 units (DME) Dexcom G6 Orthotic And Prosthetic Technician Misc See Rx Instructions .Route Qty: 1 0RF Rx Instructions: As directed thiamine HCl (vitamin B1) 100 mg tablet 100 mg PO DAILY Qty: 90 3RF (DME) lancets [Accu-Chek Fastclix Lancet Drum] Misc See Rx Instructions .ROUTE .MEDSUPPLY Qty: 50 Rx Instructions: Test blood sugar once daily PRN (DME) Dexcom G6 Sensor Device See Rx Instructions .Route Qty: 9 3RF Rx Instructions: Apply new sensor every 10 days (DME) Dexcom G6 Transmitter Device See Rx Instructions .Route Qty: 1 3RF Rx Instructions: use as directed for 90 days (DME) pen needle, diabetic [BD Vashti 2nd Gen Pen Needle] 32 gauge x 5/32" needle See Rx Instructions miscellaneous .MEDSUPPLY Qty: 150 5RF Rx Instructions: Use new pen needle 4x a day aspirin [Justice Low Dose Aspirin] 81 mg Tablet,Delayed Release (Dr/Ec) 81 mg PO QAM mirtazapine 7.5 mg tablet 7.5 mg PO DAILY PRN (Reason: Sleep) No Action (DME) Accu-Chek Guide test strips Strip See Dose Instructions .ROUTE .MEDSUPPLY Qty: 50 1RF Rx Instructions: test 1 time daily (DME) blood-glucose meter [Accu-Chek Guide Glucose Meter] misc See Dose Instructions .ROUTE .MEDSUPPLY Qty: 1 Rx Instructions: As directed Discharge Orders: Discharge Order (Routine); Ordered 03/25/23 Ordered By: David Rasheed/Other Patient Handouts: Managing Type 1 Diabetes Admission Data Admit Date/Time: 03/24/23 16:53 Attending Provider: David Posadas Admit Provider: Gerry Ruby Primary Care Provider: Gautam Sunshine Other Providers: Gerry Ruby ; Jose Maxwell Other Interventions: Discharge Summary Assessment (RN) Last Done: 03/25/23 17:07 Coding Level of Care Code 71722 INP/OBS DISCH >30 MIN Diagnoses Unstable angina I20.0 Diabetes mellitus type 1 E10.9 HTN (hypertension) I10 CAD S/P percutaneous coronary angioplasty I25.10; Z98.61 Depression with anxiety F41.8 Dyslipidemia E78.5 Alcohol abuse F10.10
[2023-03-25] MEDS: HEPARIN SODIUM/DEXTROSE 25,000 UNITS/500 ML BAG IV SCH (18:25)
[2023-03-25] MEDS: ATORVASTATIN 40 MG TAB PO SCH (20:52)
[2023-03-25 21:23] LABS: Partial Thromboplastin Ratio 1.1; Partial Thromboplastin Time 31.6 Seconds (21.0-31.0)
[2023-03-25] MEDS ORDERED: HEPARIN SOD (PORCINE) 1000 UNIT/ML IV ONE (21:45)
[2023-03-26] MEDS ORDERED: INSULIN ASPART PER UNIT CHARGE SC SCH
[2023-03-26] MEDS ORDERED: PANTOprazole 40 MG in SYRINGE 0 ML IV ONE (00:30)
[2023-03-26] MEDS ORDERED: LORazepam 2 MG/1 ML VIAL IV STA (00:32)
[2023-03-26] MEDS ORDERED: METOPROLOL SUCC 25MG EXT REL TAB PO SCH (09:00)
--- NOTE | 2023-04-02 08:02 | Coding Query ---
CODING QUERY To promote full compliance with coding requirements relating to patient care, provider participation is requested in all cases of chief yeoman uncertainty. Please assist us with the question(s) below: Coding Question(s): The Cardiac Catheterization Report documents CAD Presentation: Non STEMI and Pre-Procedure Diagnosis: Non STEMI, and then Post- Procedure Diagnosis: Severe CAD, and, under Summary, "Severe multivessel coronary disease including left main, LAD, diagonal, circumflex/OM, and RCA. There are reasonable distal targets for coronary artery bypass grafting". It is not clear if the Non STEMI was still possible or if it was Severe CAD without Non STEMI. Please specify below, in your clinical opinion: ( ) Severe CAD, without Non STEMI (x ) Severe CAD, with Non STEMI ( ) Other: Please Specify Physician's Response(s): Thank you Nathaly Villalba Principal Diagnosis: "that condition established after study, to be chiefly responsible for occasioning the admission of the patient to the hospital for care." Co-Existing Principal Diagnosis: "when two or more diagnoses equally meet the criteria for principal diagnosis as determined by the circumstances of admission, diagnostic work up, and/or therapy provided, and the Alphabetic Index, Tabular List, or another coding guideline does not provide sequencing direction, any one of the diagnoses may be sequenced first." "When the physician has documented what appears to be a current diagnosis in the body of the record, but has not included the diagnosis in the final diagnostic statement, the physician should be asked whether the diagnosis should be added." (Source Coding Clinic 2 QTR90. p3-4) KAYLIN
== END 2023-03-26 02:25 | disposition short-term general hospital (02) | DRG 282 ==
LOC: ED 13:45 → SUATTDRO 16:53 → 2S 16:53
PROC: CLB.CCO (2023-03-25 08:00)